=== PATIENT | female | born 1990 | race Caucasian/White ===

== ENCOUNTER 2025-09-27 19:04 | Emergency (ER) | payer OTHER, SELFPAY ==
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
--- OUTSIDE RECORDS SUMMARY | 2025-09-27 09:19 | XMS_ITS | Encounter Summary ---
Author Organization [facility] Address [address] [place] [id number] Phone Care Team Providers Care Clinical Secretary Name Role Phone Claudia Yip NP Primary Care Provider [phone]- [phone] Reason for Visit * Reason Comments Allergic Reaction Encounter Details Date Type Department Care Team (Late st Contact Info) Description 09/27/2025 9:19 AM EST - 09/27/2025 12:24 PM EST Emergency [facility] [address] [place] [address] Mehdi Davis MD [address] [place] [address] [email or web address] Discharge Disposition: Home or Self Care Social [...] Sign Reading Time Taken Comments Blood Pressure 118/52 09/27/2025 12:23 PM EST Pulse 83 09/27/2025 12:23 PM EST Temperature 36.6 C (97.9 F) 09/27/2025 9:19 AM EST Respiratory Rate 16 09/27/2025 12:23 PM EST Oxygen Saturation 100% 09/27/2025 12:23 PM EST Inhaled Oxygen Concentration - - Weight 83.9 kg (185 lb) 09/27/2025 9:19 AM EST Height 165.1 cm (5' 5 ) 09/27/2025 9:19 AM EST Body Mass Index 30.79 09/27/2025 9:19 AM EST documented in this encounter Functional Status * Calculated C-SSRS Risk Score (Lifetime/Recent) Answer Date of Assessment Author No Risk Indicated 09/27/2025 9:17 AM EST Charline Duran RN * [place] Suicide Severity Rating Scale (Screener/Recent Self-Report) Question Answer Date of Assessment Author 1. Wish to be (Past 1 Month) No 025 9:17 AM Charline Cevallos RN 2. Non-Specific Active Suici christophe Thoughts (Past 1 Month) No 09/27/2025 9:17 AM Charline Cevallos RN 6. Suicidal Behavior (Lifetime) No 9:17 AM Charline Cevallos RN documented as of this encounter Discharge Instructions * Discharge Instructions* Mehdi Davis MD - 09/27/2025 12:07 PM EST Please schedule follow-up appoint with your primary care provider as soon as possible. You have been treated for anaphylaxis in the emergency department. Part of your treatment was Benadryl (diphenhydramine) which may be present in breastmilk. You should monitor your child for any signs of irritability or drowsiness. You may take Zyrtec twice a day to help prevent return of allergy symptoms. We have also prescribed Pepcid and prednisone to help prevent return of symptoms. If you have return of symptoms, use the EpiPen and return to the emergency department. If you become concerned for any reason go immediately to the emergency department. * Attachments The following attachments cannot be sent through Care Everywhere. * Anaphylactic Reaction ([place]) documented in this encounter Medications at Time of Discharge cetirizine (ZYRTEC) 5 MG chewable tablet Take 5 mg by mouth as needed for allergies. clotrimazole-beta methasone (LOTRISONE) cream Apply topically 2 (two) times a day. 45 g 07/27/2025 diphenhydrAMINE (BENADRYL) 25 mg capsule Take 25 mg by mouth as needed for itching. EPINEPHrine 0.3 mg/0.3 mL auto-injector Inject 0.3 mL (0.3 mg total) into the muscle as needed for anaphylaxis. 1 each 09/27/2025 famotidine (PEPCID) 20 MG tablet Take 1 tablet (20 mg total) by mouth 2 (two) times a day for 3 days. 6 tablet 09/27/2025 5 ibuprofen (ADVIL,MOTRIN) 600 MG tablet Take 1 tablet (600 mg total) by mouth every 6 (six) hours as needed for pain (specific location in comments). 50 tablet 07/18/2025 predniSONE (DELTASONE) 50 MG tablet Take 1 tablet (50 mg total) by mouth daily with breakfast for 3 days. 3 tablet 09/27/2025 5 PLUS VITAMIN-MINERAL 27 mg iron- 1 mg TabIndications:En counter for supervision of other normal in first trimester TAKE 1 TABLET BY MOUTH EVERY DAY 90 tablet 2 01/01/2025 documented as of this encounter ED Notes * Charline Turner RN - 09/27/2025 9:17 AM EST Pt was here yesterday for allergic reaction and treated and sent home. Sx returned this morning. 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 Pt has facial redness and swelling and chest tightness. In triage, pthas high pitched voice. Breathing is easy and nonlabored good sp02 in RA. * Mehdi Davis MD - 09/27/2025 9:16 AM EST Chief Complaint Chief Complaint Patient presents with Allergic Reaction History of Present Illness The patient, Christina Ramirez,is a 35 y.o. female who presents for evaluation of Allergic Reaction 35-year-old female here for evaluation of of throat closing sensation, flushing of the face. Patient notes that she had flushing of the face yesterday, was treated with medications for an allergic reaction, although did not receive epinephrine. Patient took 50 mg of Benadryl and 1 tablet of Zyrtec prior to arrival. Unless otherwise specified, I have reviewed and agree with the triage and nursing notes. ROS A ten point review of systems was negative except what was noted in the HPI. Review of Systems Past Medical History Past Medical History: Diagnosis Date Abnormal Pap smear of cervix 12/31/2016 ASCUS w/neg HPV ADHD Depression Kidney stones Nausea and vomiting in 11/25/2020 Other family disruption 03/23/2020 Christina reports she [...] is a significant stressor in her Al Pap smear for cervical cancer screening 12/04/2019 vania; normal , neg HPV Past Surgical History Past Surgical History: Procedure Laterality Date LITHOTRIPSY Home Medications Prior to Admission medications Medication Sig cetirizine (ZYRTEC) 5 MG chewable tablet 5 mg, As needed diphenhydrAMINE (BENADRYL) 25 mg capsule 25 mg, As needed PLUS VITAMIN-MINERAL 27 mg iron- 1 mg Tab 1 tablet, Oral, Daily clotrimazole-betamethasone (LOTRISONE) cream Topical, 2 times daily Patient not taking: Reported on 09/27/2025 EPINEPHrine 0.3 mg/0.3 mL auto-injector 0.3 mg, Intramuscular, As needed famotidine (PEPCID) 20 MG tablet 20 mg, Oral, 2 times daily ibuprofen (ADVIL,MOTRIN) 600 MG tablet 600 mg, Oral, Every 6 hours PRN Patient not taking: Reported on 09/27/2025 predniSONE (DELTASONE) 50 MG tablet 50 mg, Oral, Daily with breakfast Allergies Allergies Allergen Reactions Meloxicam Rash Social and Family History Social History Tobacco Use Smoking status: Never Smokeless tobacco: Never Substance Use Topics Alcohol use: Not Currently Comment: not since Social History Substance and Sexual Activity Drug Use Never Family History Problem Relation Age of Onset Other Maternal Grandmother congenital heart defect Basal cell carcinoma Maternal Grandmother Hypertension Maternal Grandmother Stroke Maternal Grandmother Lung cancer Maternal Grandfather ADD / ADHD Son Ovarian cancer Maternal Aunt ADD / ADHD Daughter Physical Exam Vital Signs: ED Triage Vitals [09/27/25 0919] Encounter Vitals Group BP (!) 145/86 Girls Systolic BP Percentile Girls Diastolic BP Percentile Boys Systolic BP Percentile Boys Diastolic BP Percentile Heart Rate 70 Respiratory Rate 16 Temperature 36.6 ??C (97.9 ??F) Temp Source Temporal SpO2 99 % Weight 185 lb Height 5' 5 Head Circumference Peak Flow Pain Score Pain Loc Pain Education Exclude from Growth Chart Physical Exam GENERAL APPEARANCE: Well developed, well nourished, alert and cooperative, in no acute distress. HEAD: normocephalic. Atraumatic EYES: PERRL, EOMI. Vision is grossly intact. EARS: Hearing grossly intact. External exam normal. Oropharynx: No tongue swelling, uvula is midline. Patient has stridor. NOSE: Midline, No nasal discharge. NECK: Neck supple, trachea midline. LUNGS: Stridor. No wheezing. CARDIAC: Regular Rate and Rhythm. No murmurs Rubs or gallops ABDOMEN: Soft, nontender, nondistended, No guarding or rebound. No masses. BACK: No spinal tenderness. No CVA tenderness. EXTREMITIES: Normal appearance, normal muscular development. NEUROLOGICAL: AAOX3. Normal strength and sensation. SKIN: Flushing of the face. No other rash. Laboratory Testing No results found for this visit on 09/27/25. Radiology Testing No orders to display ED Medication from 09/27/2025 0916 to 09/27/2025 1214 Date/Time Order Dose Route Action Action by Comments 09/27/2025 0932 EST diphenhydrAMINE (BENADRYL) injection 25 mg 25 mg Intravenous Given Polly Ortiz RN -- 09/27/2025 0929 EST EPINEPHrine auto-injector 0.3 mg 0.3 mg Intramuscular Given Polly Ortiz RN -- 09/27/2025 0932 EST famotidine (PF) (PEPCID) injection 20 mg 20 mg Intravenous Given Polly Ortiz RN -- 09/27/2025 0932 EST methylPREDNISolone sodium succinate (PF) (SOLU-Medrol) injection 125 mg 125 mg Intravenous Given Polly Ortiz RN -- [facility] Assessment and Plan: 35-year-old female here for evaluation of throat closing sensation in the setting of recent allergic reaction. Patient treated with epinephrine with prompt resolution of her symptoms. Patient was observed in the emergency department. Patient instructed on how to use an EpiPen. Prescription sent for EpiPen as well as short course of antihistamines and steroids to help prevent recurrence. Return precaution discussed. Patient discharged stable condition. Risks of Complications, Morbidity, or Mortality: Risks: Necessity for prescription medication was discussed. Anaphylaxis Meds, EpiPen. ED Course as of 09/27/25 1214 SatSep 27, 2025 1203 Pt awake and alert. Pt has 2-mo who is breast feeding. We discussed that diphenhydramine does cross into breast milk. Although this is not a contraindication to breast feeding, we discussed thatshe should monitor her child for drowsiness or irritability. Pt has had complete resolution of her s ymptoms. Return precautions discussed. Pt discharged in stable condition. [AG] ED Course User Index [AG] Mehdi Davis MD Clinical Impressions as of 09/27/25 1214 Anaphylaxis, initial encounter Critical Care Time: 0 minutes Clinical Impression Diagnosis Description Comment Final diagnosis Anaphylaxis, initial encounter Anaphylaxis, initial encounter -- Disposition: Home Mehdi Davis MD 09/27/251213 documented in this encounter Plan of Treatment Not on file documented as of this encounter Visit Diagnoses Diagnosis Anaphylaxis, initial encounter- Primary documented in this encounter Administered Medications Inactive Administered Medications - up to 3 most recent administrations Medication Order MAR Action Action Date Dose Rate Site diphenhydrAMINE (BENADRYL) injection 25 mg 25 mg, Intravenous, Once, On Sat09/27/25 at 0930, For 1 dose Given 09/27/2025 9:32 AM EST 25 mg EPINEPHrine auto-injector 0.3 mg 0.3 mg, Intramuscular, Once, On Sat09/27/25 at 0930, For 1 dose Given 09/27/2025 9:29 AM EST 0.3 mg Left Anterior Thigh famotidine (PF) (PEPCID) injection 20 mg 20 mg, Intravenous, Once, On Sat09/27/25 at 0930, For 1 dose, May be given undiluted IV push over 2 minutes. May be given undiluted IV push over 2 minutes. Given 09/27/2025 9:32 AM EST 20 mg methylPREDNISolone sodium succinate (PF) (SOLU-Medrol) injection 125 mg 125 mg, Intravenous, Once, On Sat09/27/25 at 0930, For 1 dose Given 09/27/2025 9:32 AM EST 125 mg documented in this encounter Active and Recently Administered Medications Times are shown in EST. Scheduled Medication Order 09/25/2025 09/26/2025 09/27/2025 diphenhydrAMINE (BENADRYL) injection 25 mg (COMPLETED) 25 mg, Intravenous, Once, On Sat09/27/25 at 0930, For 1 dose 0932 (Given - Provid er: Polly Ortiz RN) EPINEPHrine auto-injector 0.3 mg (COMPLETED) 0.3 mg, Intramuscular, Once, On Sat09/27/25 at 0930, For 1 dose 0929 (Given - Provid er: Polly Ortiz RN) famotidine (PF) (PEPCID) injection 20 mg (COMPLETED) 20 mg, Intravenous, Once, On Sat09/27/25 at 0930, For 1 dose, May be given undiluted IV push over 2 minutes. May be given undiluted IV push over 2 minutes. 0932 (Given - Provid er: Polly Ortiz RN) methylPREDNISolone sodium succinate (PF) (SOLU-Medrol) injection 125 mg (COMPLETED) 125 mg, Intravenous, Once, On Sat09/27/25 at 0930, For 1 dose 0932 (Given - Provid er: Polly Ortiz RN) documented in this encounter Care Teams Clinical Secretary Relationship Specialty Start Date End Date Claudia Yip NP [address] [place] [address] PCP - General Family Medicine 08/25/18 documented as of this encounter Additional Source Comments The information contained in this document represents components of the legal health record. It is not the complete legal health record.[facility]
[2025-09-27 19:07] VITALS: BP 130/80; BP 133/82; PULSE 108; PULSE 120; RESP 20; TEMP 36.9; O2SAT 100; O2SAT 96; BMI 30.8
[2025-09-27 19:23] VITALS: BP 124/90; PULSE 105; RESP 17; O2SAT 97
--- OUTSIDE RECORDS SUMMARY | 2025-09-27 19:43 | XMS_ITS | Encounter Summary ---
Author Organization [facility] Address [address] [place] [id number] Phone Care Team Providers Care Manager Financial Reporting Name Role Phone Claudia Yip PLUMBING INSTALLER Primary Care Provider [phone]- [phone] Encounter Details Date Type Department Care Team (Late st Contact Info) Description 08/25/2018 Procedure [facility], Ct Scan - [address] [address] Social History Tobacco Use Types Packs/Day Years Used Date Smoking Tobacco: Never Smokeless Tobacco: Never Alcohol Use Standard Drinks/Week Comments Yes 0 (1 standard drink = 0.6 oz pur e alcohol) once a week Comments Unknown Sex and Gender Information Value Date Recorded Sex Assigned at Female 08/25/2018 9:42 AM EDT Legal Sex Female 9:01 PM EDT Gender Identity Female 08/25/2018 9:42 AM EDT Sexual Orientation Straight 08/25/2018 9: 42 AM EDT documented as of this encounter Plan of Treatment Not on file documented as of this encounter Visit Diagnoses Not on filedocumented in this encounter Additional Health Concerns Infection Onset Date Last Indicated Resolved Time CoV-Risk 05/01/2022 05/01/2022 05/12/2022 1:24 AM EDT documented as of this encounter Care Teams Manager Financial Reporting Relationship Specialty Start Date End Date Claudia Yip, HANNAH [facility] [address] [facility] [place] [address] PCP - General Family Medicine 08/25/18 documented as of this encounter Additional Source Comments The information contained in this document represents components of the legal health record. It is not the complete legal health record.[facility]
--- OUTSIDE RECORDS SUMMARY | 2025-09-27 19:44 | XMS_ITS | Clinical Summary ---
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 Mirena, and COCP in the past. GBS collected today. Discussed FM, PTL, PEC, and labor precautions. +FM. Denies LOF, VB, UCs. Next visit virtual in one week. Assessment & Plan (04/05/2020 1:34 PM EDT): Christina is doing OK today- feeling a lot of anxiety, mostly related to situation with her older kid's dad (see separate problem for details). We reviewed coping/anxiety relief strategies. She has good support from her mom and a couple of close friends. She had a therapist in the past, will reach out to [facility] and inquire about resuming care. EPDS 13 with never to question 10. She feels like the is going well- feels regular movement, denies PTL signs. She plans to deliver with CNMs. Hospital packet given today and info on home BP monitoring given. If she is able to get a cuff she will bring to her next visit. UTI symptoms resolved after starting macrobid, will finish abx. 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 Normal NIPT Encounters Date Type Department Care Team Description 09/27/2025 9:19 AM EST - 09/27/2025 12:24 PM EST Emergency [facility] [address] [place] [address] Mehdi Davis MD Discharge Disposition: Home or Self Care 09/26/2025 9:43 AM EST - 09/26/2025 12:40 PM EST Emergency [facility] [address] [place] [address] Discharge Disposition: Home or Self Care 08/20/2025 1:50 PM EDT [facility] [address] [place] [address] [place] [address] Filomena Combs CNM 07/30/2025 3:50 PM EDT Visit [facility] [address] [place] [address] [place] [address] Filomena Combs CNM 07/28/2025 Telephone [facility] [address] [place] [address] [place] [address] Rosa Elena Wren RN nipple drainage 07/27/2025 9:50 AM EDT Visit [facility] [address] [place] [address] [place] [address] Tabitha Ramon CNM Maculopapular rash (Primary Dx) 07/26/2025 Refill [facility] [address] [place] [address] [place] [address] Rosa Elena Wren RN Mastitis 07/16/2025 7:40 AM EDT - 07/18/2025 1:48 PM EDT Hospital Encounter [facility] [address] [place] [address] Celi Chatterjee MD Discharge Disposition: Home or Self Care 07/09/2025 11:10 AM EDT Routine [facility] [address] [place] [address] [place] [address] Filomena Combs CNM GA: 39w6d 07/09/2025 Telephone [facility] [address] [place] [address] [place] [address] Filomena Combs CNM 07/09/2025 Telephone [facility] [address] [place] [address] [place] [address] Filomena Combs, HILDA 07/02/2025 9:10 AM EDT Routine [facility] [address] [place] [address] [place] [address] Filomena Combs, HILDA GA: 38w6d from Last 3 Months Immunizations Immunization Administration Dates Next Due DTP 06/11/1996, 3,1991,10/16,1991 DTaP 04/20/2013 Hepatitis B 12/21/1996,08/03/1996,06/11/1996 Hepatitis B Adult 12/21/1996,08/03/1996,06/11/19 96 Hib,PRP-T 08/26/1992, 2,1991,08/13 INFLUENZA, SPLIT VIRUS, TRIV ALENT W/ PRESERVATIVE IM 10/02/2021,11/04/2017,08/31/2011 IPV 06/11/1996, 3,1991,08/13 Influenza Quadrivalent Prese rvative Free IM 12/12/2020 Influenza, whole 08/07/2019 MMR 06/13/1995,08/26/1992 Pneumococcal polysaccharide PPSV23 12/21/2009 Polio - OPV 06/11/1996, 3,1991,08/13 Td (adult),2 Lf Tetanus Toxo id, PF, Adsorbed 08/27/2002 Td, unspecified formulation 08/27/2002 Tdap 05/18/2021,,01/26/2014,01/31 Varicella 08/17/1992 Family History Medical History Relation Comments ADD / ADHD Daughter Ovarian cancer Maternal Aunt Lung cancer Maternal Grandfather Basal cell carcinoma Maternal Grandmother Hypertension Maternal Grandmother Other Maternal Grandmother congenital heart defect Stroke Maternal Grandmother ADD / ADHD Son Relation Status Comments Brother Alive Daughter Father Alive Maternal Aunt Maternal Grandfather Maternal Grandmother Alive Mother Alive Paternal Grandfather Alive Paternal Grandmother Alive Sister Alive Son Social History Tobacco Use Types Packs/Day Years [...] file Not on file Not on file Last Filed Vital Signs Vital Sign Reading [...] Mass Index 30.79 09/27/2025 9:19 AM EST Plan of Treatment Health Maintenance Due Date Last Done Comments DEPRESSION SCREENING 2003 INFLUENZA VACCINE (#1) 2025 , 12/12/2020, 08/07/2019, Additional history exists COVID-19 VACCINE ( season) 2025 PAP SMEAR 12/23/2027 12/23/2024, 12/04/2019 Adult Td,Tdap Booster 05/18/2031 05/18/2021 , 03/01/2020, 01/26/2014, Additional history exists HIB VACCINES Completed 08/26/1992, 11/20, 1991, Additional history exists IPV VACCINES Completed 06/11/1996, 05/19, 11/25/1992, Additional history exists PNEUMOCOCCAL VACCINES (0-49 years) Aged Out 12/21/2009 No longer eligible based on patient's age to complete this topic HEPATITIS C SCREENING Completed 12/14/2024 , 12/14/2024, 11/19/2020, Additional history exists HIV ONE-TIME SCREENING (18-65 YEARS) Completed 12/14/2024 SMOKING STATUS SCREENING (Once After 26 Yrs) Completed 09/27/2025 HEPATITIS A VACCINES Aged Out No long er eligible based on patient's age to complete this topic MENINGOCOCCAL VACCINES (ACWY) Aged Out No longer eligible based on patient's age to complete this topic MENINGOCOCCAL VACCINES (B) Aged Out N o longer eligible based on patient's age to complete this topic Medical Devices Not on file Procedures Procedure Name Priority Date/Time Associated Diagnosis Comments ECG 12-LEAD STAT 09/26/2025 9:59 AM EST SYPHILIS ANTIBODY SCREEN ASSAY Routine 07/17/2025 7:11 AM EDT CBC Routine 07/17/2025 7:11 AM EDT HC BLOOD TYPING SEROLOGIC ABO Routine 07/16/2025 7:59 AM EDT CBC STAT 07/16/2025 7:59 AM EDT PAP TEST Routine 12/23/2024 12:00 AM EST HEPATITIS C ANTIBODY, QUALITATIVE Routine 12/14/2024 4:16 PM EST Encounter for supervision of other normal in first trimester from Last 3 Months or Most Recently Relevant to Health Maintenance Results * ECG 12-LEAD (09/26/2025 9:59 AM EST) Ventricular Rate EKG/MIN 76 BPM [facility] Atrial Rate 76 BPM [facility] LA Interval 132 ms [facility] QRS Duration 92 ms [facility] QT Interval 414 ms [facility] QTC Interval 465 ms [facility] P [place] 36 degrees [facility] R Wave [place] 79 degrees [facility] T Wave [place] 57 degrees [facility] 09/26/2025 9:59 AM EST 09/26/2025 11:40 AM EST Narrative [facility] - 09/26/2025 11:40 AM EST Normal sinus rhythm Low voltage QRS Incomplete right bundle branch block Borderline ECG No previous ECGs available Confirmed by Rogelio MAHONEY ([id number]) on 09/26/2025 11:40:20 AM us Meek Holguin MD ECG ORDERABLES Final Result [facility] * Syphilis antibody screen (07/17/2025 7:11 AM EDT) [facility] RPR NON-REACTIV E NON-REACTI VE [facility] Blood 07/17/2025 7:11 AM EDT 07/17/2025 7:17 AM EDT us Charline BROOKS LAB BLOOD BKR ORDERABLES Final R esult Performing Organization Address City/[facility]/ZIP Co de Phone Number [address] [address] * (ABNORMAL) CBC (07/17/2025 7:11 AM EDT) Only the most recent of2 resultswithin the time period is included. Pathologist [facility] [place] WBC 11.34(H) 4.00 - 11.00 K/uL [facility] RBC 3.91(L) 4.00 - 5.20 M/uL [facility] HGB 12.0 12.0 - 16.0 g/dL [facility] HCT 35.8(L) 36.0 - 46.0 % [facility] PLT 190 150 - 450 K/uL [facility] MCV 91.6 80.0 - 100.0 fL [facility] MCH 30.7 27.0 - 31.0 pg [facility] MCHC 33.5 32.0 - 36.0 g/dL [facility] RDW 13.3 11.5 - 14.5 % [facility] MPV 10.9 8.4 - 12.0 fL [facility] NRBC 0.00 0.00 /100 WBCs [facility] ABSOLUTE NRBC 0.00 0.00 K/uL [facility] Blood 07/17/2025 7:11 AM EDT 07/17/2025 7:17 AM EDT Charline [facility] [place][note 2] LAB BLOOD BKR ORDERABLES Final R esult Performing Organization Address [facility]/ZIP Co de Phone Number [address] [address] * Type and Screen (ABO,Rh,Antibody Screen) (07/16/2025 7:59 AM EDT) ABO/Rh AB Positive [facility] Antibody Screen Negative [facility] Expiration Date of Sample 07/19/2025,2 359 [facility] Resulting Agency [facility] Blood 07/16/2025 7:59 AM EDT 07/16/2025 8:09 AM EDT Charline [facility] [place][note 2] LAB BLOOD BANK TEST ORDERABLES F inal Result Performing Organization Address [facility] Co de Phone Number [address] [address] * Pap Test (12/23/2024 12:00 AM EST) Report [address] [address] Stable Cleaner: Simon Padilla MD [employer] Cytology Report FINAL DIAGNOSIS A. PAP SMEAR (THIN PREP) CE: SPECIMEN ADEQUACY: Satisfactory for evaluation; transformation zone present. INTERPRETATION: NEGATIVE FOR INTRAEPITHELIAL LESION OR MALIGNANCY. Reactive changes. This specimen was analyzed by the automated ThinPrep Imaging System (Gelesis.) and manually rescreened by a field agronomist and/or pathologist. Electronically Signed Out By: CARLOS Tolliver MD(ASCP) By his/her signature above, the pathologist listed as making the Final Diagnosis certifies that he/she has personally reviewed this case and confirmed or corrected the diagnosis. The Pap test is a screening test primarily for squamous cancers and precursors and has associated false-negative and false-positive results. New technologies such as liquid-based preparations may decrease but will not eliminate all false-negative results. Regular sampling and follow-up of unexplained clinical signs and symptoms are recommended to minimize false negative results. PROCEDURES/ADDENDA HPV Testing (Requested) Ordered Date: 12/25/2024 A. PAP SMEAR (THIN PREP) CE: High-risk HPV Panel w/ extended genotyping NEG HPV 16-NEG HPV 18-NEG HPV 45-NEG HPV 33/58-NEG HPV 31-NEG HPV 56/59/66-NEG HPV 51-NEG HPV 52-NEG HPV 35/39/68-NEG Performed by real-time polymerase chain reaction (PCR) at [facility], [address] [place] [address] using the FDA-approved [employer] Onclarity9 HPV Assay with extended genotyping. Uses of the assay in scenarios other than those approved by the FDA should be considered off-label use. The accuracy and precision of this test for all other off-label specimen sources has been verified in the Cytopathology Laboratory of the [facility] and has not been cleared or approved by the U.S. Food and Drug Administration. Clinical correlation is advised. The assay assesses the E6/E7 DNA target and utilizes human beta globin as an internal control. Cytology and HPV testing are screening assays and should not be used as the sole means of detecting cancer. False-positives and false-negatives can occur. CLINICAL HISTORY Date of Last Menstrual Period: 09-22-2024 Menstrual History: Other Clinical Conditions: Screening Pap SPECIMEN SOURCE A: PAP SMEAR (THIN PREP) CE Patient Name: CHRISTINA ALVAREZ : 1990 (Age: 34) Sex: F Institution: [facility] Location: [facility] Date of Collection: 12/23/2024 Date of Reported: 01/01/2025 10:24 Results to: Wendie Sommer [facility] Final Diagnosis A. PAP SMEAR (THIN PREP) CE: SPECIMEN ADEQUACY: Satisfactory for evaluation; transformation zone present. INTERPRETATION: NEGATIVE FOR INTRAEPITHELIAL LESION OR MALIGNANCY. Reactive changes. This specimen was analyzed by the automated ThinPrep Imaging System (Gelesis.) and manually rescreened by a field agronomist and/or pathologist. [facility] Results\Inte rpretation A. PAP SMEAR (THIN PREP) CE: High-risk HPV Panel w/ extended genotyping NEG HPV 16-NEG HPV 18-NEG HPV 45-NEG HPV 33/58-NEG HPV 31-NEG HPV 56/59/66-NEG HPV 51-NEG HPV 52-NEG HPV 35/39/68-NEG Performed by real-time polymerase chain reaction (PCR) at [address] using the FDA-approved [employer] Onclarity HPV Assay with extended genotyping. Uses of the assay in scenarios other than those approved by the FDA should be considered off-label use. The accuracy and precision of this test for all other off-label specimen sources has been verified in the Cytopathology Laboratory of the [facility] and has not been cleared or approved by the U.S. Food and Drug Administration. Clinical correlation is advised. The assay assesses the E6/E7 DNA target and utilizes human beta globin as an internal control. Cytology and HPV testing are screening assays and should not be used as the sole means of detecting cancer. False-positives and false-negatives can occur. [facility] Conversion Type (Conversion Source) 12/23/2024 12/25/2024 9:22 AM EST us Wendie Sommer CNM, MPH CYTOLOGY ORDERABLES Ed ited Result - Final [facility] [address] [place], [place] [id number] * Hepatitis C antibody, qualitative (12/14/2024 4:16 PM EST) HCV NON-REACTIV E NON-REACTI VE [facility] Blood 12/14/2024 4:16 PM EST 12/14/2024 4:24 PM EST us Wendie Sommer CNM, MPH LAB BLOOD BKR ORDERABL ES Final Result [address] [address] from Last 3 Months or Most Recently Relevant to Health Maintenance Insurance [facility] [employer]CO [employer] [place] [address] [place] [address] [place] [address] [place] [address] ACO Advance Directives For more information, please contact: [phone] (9AM - 5PM [facility], Saturday-Saturday) Documents on File Type Date Recorded 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 It is not the complete legal health record.[facility]
--- OUTSIDE RECORDS SUMMARY | 2025-09-27 19:44 | XMS_ITS | Encounter Summary ---
Author Organization [facility] Address [address] [place] [address] Phone Care Team Providers Care Ledge Man Name Role Phone Clara Muhammad MD Primary Care Provider [phone] Encounter Details Date Type Department Care Team (Late st Contact Info) Description 05/17/2015 Documentation [facility] [place] [facility] [address] [place], [place] [id number] Family Medicine, Physician [address] [place], [place] [id number] Social History Tobacco Use Types Packs/Day Years Used Date Smoking Tobacco: Never Assessed Comments Unknown Sex and Gender Information Value Date Recorded Sex Assigned at Not on file Legal Sex Female 4:30 PM EDT Gender Identity Not on file Sexual Orientation Not on file documented as of this encounter Plan of Treatment Not on file documented as of this encounter Visit Diagnoses Not on filedocumented in this encounter Care Teams Ledge Man Relationship Specialty Start Date End Date Clara Muhammad MD [address] [place] [address] ANNE Mckeon [address] PCP - General 06/28/17 documented as of this encounter
--- OUTSIDE RECORDS SUMMARY | 2025-09-27 19:44 | XMS_ITS | Clinical Summary ---
Author Organization [facility] Address [address] [place] [address] Phone Care Team Providers Care Dairy Hand Name Role Phone Clara Muhammad MD Primary Care Provider [phone] Immunizations Immunization Administration Dates Next Due DTP 06/11/1996, 3,1991,1990,1991 Hep B, ped/adol 12/21/1996,08/03/1996,06/11/1996 Hib (PRP-T) 08/26/1992, 2,1991,1990 MMR 06/13/1995,08/26/1992 OPV 06/11/1996, 3,1991,1990 Td (adult) (MBL), 2 Lf tetan us toxoid, PF, adsorbed 08/27/2002 Varicella 08/17/1992 Family History Relation Name Status Comments Father Alive Father: Alive a nd well Maternal Grandmother Materna l grandmother: cardiac Mother Alive Mother: Alive a nd well Social History Tobacco Use Types Packs/Day Years Used Date Smoking Tobacco: Never Assessed Comments Unknown Sex and Gender Information Value Date Recorded Sex Assigned at Not on file Legal Sex Female 4:30 PM EDT Gender Identity Not on file Sexual Orientation Not on file Last Filed Vital Signs Vital Sign Reading Time Taken Comments Blood Pressure - - Pulse - - Temperature 36.4 C (97.6 F) 10/06/2010 12:00 AM EST Respiratory Rate - - Oxygen Saturation - - Inhaled Oxygen Concentration - - Weight 70.3 kg (155 lb) 10/06/2010 12:00 AM EST Height - - Body Mass Index - - Plan of Treatment Health Maintenance Due Date Last Done Comments Varicella Vaccines (2 of 2 - 2-dose childhood series) 07/11/1995 08/17/1992 DTaP,Tdap,and Td Vaccines (6 - Tdap) 08/28/2002 08/27/2002, 06/11/1996, 11/25/1992, Additional history exists HPV Vaccines (1 - 3-dose SCDM series) 2018 Influenza Vaccines (#1) 2025 COVID-19 Vaccine ( season) 2025 HIB Vaccines Completed 08/26/1992, 11/20, 1991, Additional history exists MMR Vaccines Completed 06/13/1995, 08/26/1992 IPV Vaccines Completed 06/11/1996, 06/1993, 1991, Additional history exists Hepatitis B Vaccines Completed 12/21/1996, 08/03/1996, 06/11/1996 Hepatitis A Vaccines Aged Out No long er eligible based on patient's age to complete this topic Men B Vaccine Aged Out No longer elig ible based on patient's age to complete this topic Meningococcal Vaccine Aged Out No rahul dorcas eligible based on patient's age to complete this topic Pneumococcal Vaccine Aged Out No long er eligible based on patient's age to complete this topic Care Teams Dairy Hand Relationship Specialty Start Date End Date Clara Muhammad MD [address] [place] [address] ANNE Mckeon [address] PCP - General 06/28/17
--- OUTSIDE RECORDS SUMMARY | 2025-09-27 19:44 | XMS_ITS | Encounter Summary ---
Author Organization [facility] Address [address] [place] [address] Phone Care Team Providers Care Sling Operator Name Role Phone Clara Muhammad MD Primary Care Provider [phone] Encounter Details Date Type Department Care Team (Late st Contact Info) Description 07/04/2017 Conversion Encounter [facility] [place] [address] [place] [address] Social History Tobacco Use Types Packs/Day Years [...] on filedocumented in this encounter Care Teams Sling Operator Relationship Specialty Start Date End Date Clara Muhammad MD [address] [place] [address] PCP - General 06/28/17 documented as of this encounter
--- OUTSIDE RECORDS SUMMARY | 2025-09-27 19:44 | XMS_ITS | Encounter Summary ---
Author Organization [facility] Address [address] [place] [address] Phone Care Team Providers Care Client Hr Manager Name Role Phone Clara Muhammad MD Primary Care Provider [phone] Encounter Details Date Type Department Care Team (Late st Contact Info) Description 05/12/2015 Documentation [facility] [place] Family Medicine [address] [place], [place] [phone] Family Medicine, Physician [address] [place], [place] [phone] Social History Tobacco Use Types Packs/Day Years [...] on filedocumented in this encounter Care Teams Client Hr Manager Relationship Specialty Start Date End Date Clara Muhammad MD [address] [place] [address] ANNE Mckeon [address] PCP - General 06/28/17 documented as of this encounter
[2025-09-27 21:59] VITALS: BP 118/80; PULSE 71; RESP 14; O2SAT 95
--- NOTE | 2025-09-27 22:16 | ED.GENADULT ---
HPI - General Adult General Chief complaint: Allergic Reaction Stated complaint: Allergic reaction Time Seen by Provider: 09/27/25 19:30 Source: patient Mode of arrival: ambulatory Limitations: no limitations History of Present Illness ED Provider: Alberto Deluca HPI narrative: 35 year old female with no past medical history presents to ED for allergic reaction. Patient states for the past 3 days has had episodes of throat closing, itchiness in the face with face swelling, and rash. Patient was seen at [facility] and was given epi Benadryl Solu-Medrol. Patient states she had new food on Saturday and than symptoms started Saturday. Patient also states some mole was discovered under her bed might have contributed to his symptoms. Patient denies any fever, chills, neck swelling, drooling, change in voice, recent travel, fever, chills, or peeling rash. Patient had another episode around 17:00. Patient is going to epinephrine Benadryl and Solu-Medrol. Patient states presently she feels better Related Data Allergies Allergy/AdvReac Type Severity Reaction Status Date / Time meloxicam (MELOXICAM) Allergy Severe TINGLING, Verified 09/27/25 19:12 RASH, hives Review of Systems Review of Systems: Allergic reaction Yes all other systems are reviewed and are negative PMFSH Social History Social History Smoked in Last 30 Days: No Use of substances other than those prescribed or required for medical reasons: No Advance Directives: No Advance Directives Information Provided: No Physical Exam ED Vital Signs: Vital Signs - 24 hr 09/27/25 19:07 09/27/25 19:23 09/27/25 21:59 Temperature 98.5 F Pulse Rate 108 H 105 H 71 Respiratory Rate 20 17 14 Blood Pressure 133/82 124/90 H 118/80 Pulse Oximetry 96 97 95 Oxygen Delivery Method Room Air Room Air Room Air BMI result Body Mass Index 30.8 Const General: cooperative, healthy appearing, comfortable, no acute distress, well developed, alert and awake Orientation/consciousness: patient oriented x3 HENMT Other: Negative for any facial swelling, lip swelling, tongue swelling, uvula swelling. Negative for drooling. Voice is clear Head: Yes normal to inspection, Yes No palpable skull fracture present, Yes normocephalic and Yes atraumatic Eyes General: appearance normal, both eyes and all related structures Neck Neck: Yes normal visual inspection, Yes full ROM, Yes no lymphadenopathy, Yes no meningeal signs, Yes trachea midline, Yes supple, No anterior neck swelling and No tender Chest Chest palpation & inspection: normal inspection of the chest and normal palpation of entire chest wall Resp Effort & Inspection: normal respiratory effort and able to speak in complete sentences Auscultation: clear to auscultation bilaterally Cardio Jugular venous distension: no JVD Heart sounds: S1 normal heart sound present and S2 normal heart sound present GI Inspection: Yes normal to inspection Palpation (GI): Soft to palpation, not firm, nontender, no guarding and not rigid General: Yes no CVA tenderness Back/Spine/Pelvis Back: no CVA tenderness and No back tenderness Skin General skin exam: no rashes or lesions noted, elasticity normal and turgor normal Neuro General: patient oriented x3, gait normal, tone normal, moves all extremities, Normal light touch and pain sensation, no meningeal signs, no focal motor deficits, CN's II-XI intact bilaterally and normal sensation to monofilament Extrem General: Yes normal to inspection, Yes full ROM and Yes capillary refill normal Psych Appearance: grossly normal, well kempt and not disheveled Medical Decision Making Medical Decision Making MDM Narrative: 35-year-old female presents to ED for allergic reaction. Patient states symptoms may be due to food or new black mold found in her house. Patient feels better after receiving treatment from EMS. We will observe patient in the ED. Patient is already have prescriptions at home of Zyrtec, Pepcid, prednisone and EpiPen. Patient denies any recent dental work. 11:25pm: Patient hemodynamically stable. Patient has not had allergic reactions since being in the ED. Patient's vital signs are stable. Patient informed to call primary care tomorrow for follow-up sent a referral for allergy test to see your multiple drill operator. Patient informed to continue taking medication prescribed from [facility]. Patient explained worrisome signs with her mother present and informed to return to the ED immediately. Not suspecting anaphylaxis, retropharyngeal abscess, peritonsillar abscess, Maksim's angina, Moe Kaleb syndrome, cellulitis, erysipelas, or any other life-threatening etiology Differential Diagnosis Differential Diagnoses: The differential diagnosis associated with the presentation includes (Allergic reaction, anaphylaxis) Admission/Observation Consideration of admission/observation: Escalation of care including admission/observation considered Independent Historian Clinical information obtained from an independent historian. History obtained from or confirmed by: Parent (mother) and Other (patinet) Prescription Management I considered prescription management with: Other Discharge Plan Discharge Clinical Impression: Allergic reaction Patient Disposition: Home, Self-Care Instructions: General Allergic Reaction (ED) Additional Instructions: Continue taking Zyrtec, epinephrine, prednisone, and Pepcid you were prescribed from [facility] 2 days ago. Return to the ED immediately for any swelling of the lips, swelling of the tongue, drooling, change in voice, itchy rash, chest pain, shortness of breath, sensation of throat closing, fever, chills, skin peeling, or any other concerning symptoms. Recommend follow up with PCP. Interventions: ED Discharge Assessment Last Done: 09/27/25 23:54 Discharge Date/Time: 09/27/25 23:55 Print Language: [place]
[2025-09-27 23:40] VITALS: BP 121/77; PULSE 75; RESP 16; TEMP 36.7; O2SAT 96
[2025-09-27 23:54] VITALS: BP 121/77; PULSE 75; RESP 16; TEMP 36.7; O2SAT 96
== END 2025-09-27 23:55 | disposition home or self-care (01) ==
PROVIDERS: Emergency Provider Emergency Medicine; PCP Nurse Practitioner Family
DX: T78.40XA Allergy, unspecified, initial encounter (principal); X58.XXXA Exposure to other specified factors, initial encounter
CPT/HCPCS: 99283; 99284